=== PATIENT | female | born 1965 | race Caucasian/White ===

== ENCOUNTER 2016-05-02 05:17 | Emergency (ER) | payer SELFPAY ==
--- NOTE | 2016-05-02 05:27 | EDPRACDOC ---
- General Information Stated Complaint: RT FOOT PAIN Time Seen by Provider: 05/02/16 05:19 Information Source: Patient Home Medications: Home Medications Ondansetron [Zofran Odt] 4 mg PO Q6H PRN #10 tab.rapdis 12/11/14 Alprazolam [Xanax] 1 mg PO QHS #30 tablet 01/04/15 Citalopram (anti-depressant) [Celexa] 40 mg PO HS #30 tablet 01/04/15 Dicyclomine HCl [Bentyl] 10 mg PO Q6H PRN #30 capsule 01/04/15 Omeprazole [Prilosec] 20 mg PO DAILY #30 capsule. 01/04/15 Oxycodone Immediate Release [Oxycodone Immediate Release (OxyIR)] 5 mg PO Q4H PRN #30 tablet 01/04/15 Probiotic Blend [Cece Q] 1 tab PO BIDLS #30 tablet 01/04/15 Promethazine HCl [Phenergan] 12.5 mg PO Q6 PRN #30 tablet 01/04/15 Prednisone [Deltasone, Orasone] 10 mg PO .TAPER #42 tab 05/02/16 Allergies/Adverse Reactions: Allergies Allergy/AdvReac Type Severity Reaction Status Date / Time No Known Allergies Allergy Verified 12/13/14 18:53 - History of Present Illness Onset: MONTHS HPI: GETTING WORSE. NO FEVER NO TRAUMA. ABLE TO BEAR WEIGHT COMPLETELY. Foot Problem Location: Reports: Right, Mid (PLANTAR SURFACE) ED Past Medical History - History Reviewed Yes Nurses notes reviewed and agree except as marked - Patient Medical History Neurological History: Reports: Migraine Respiratory History: Reports: COPD, Pneumonia, Emphysema GI/ History: Reports: Urinary Tract Infection, Kidney Stones, Gastroesophageal Reflux Musculoskeletal History: Reports: Arthritis (on chronic pain medication) Psychological History: Reports: Depression, Anxiety. Denies: Substance Use Disorder Surgical History: Reports: Tonsillectomy/Adnoidectomy, Other (Tubal ligation. Cysts removed from each ovary.) - Family Medical History Reports: Hypertension (Father), Diabetes (Father), Cancer (Father: stomach), Cardiac Disorders (Father: [place], CHF). Denies: Stroke - Social Medical History Smoking Status: Heavy tobacco smoker (5 or more cigarettes/day or daily pipe/ cigar) (She has not smoke since her last admission) Social History: Denies: Substance Use Disorder EDM Review of Systems - Review of Systems ROS Negative Except as Marked: Yes All systems reviewed and were negative except as marked - Physical Exam Constitutional: No apparent distress, Alert Last recorded Vital Signs: Oxygen Pulse Oxygen Saturation O2 Device Oxygen Flow Rate Fraction of Inspired Oxygen ( FIO2) ED Foot Problem Phys Exam - Musculoskeletal Foot: Moderate Tenderness (PLANTAR MID AREA). negative: Swelling, Deformity, Ecchymosis, Limited ROM Ankle: Normal Achilles Tendon: Normal Nail: Normal Nailbed: Normal Soft Tissue: Normal Digit: Normal Digit Strength: Normal Distal Function/Circulation: Normal - Integumentary Skin: Normal - Departure Disposition: Home Condition: Stable Final Diagnosis: Plantar fasciitis of right foot Instructions: Plantar Fasciitis Exercises (GEN), Plantar Fasciitis (ED) Education/Counseling Given To: Patient Education/Counseling Given Regarding: Diagnosis, Treatment, Prognosis Referrals: Charlotte Ruiz MD [Primary Care Provider] - One Week Bunny Stover MD [Staff Physician] - As Needed Prescriptions: Prednisone [Deltasone, Orasone] 10 mg PO .TAPER #42 tab
[2016-05-02 05:29] VITALS: BP 132/72; PULSE 98; TEMP 98.4; BMI 21.6
== END 2016-05-02 05:37 | disposition home or self-care (01) ==
LOC: ED 05:17
DX: M72.2 Plantar fascial fibromatosis (principal)
CPT/HCPCS: 99282